=== PATIENT | male | born 1985 | race American Indian/Alaskan Native ===

== ENCOUNTER 2017-08-11 15:32 | Emergency (ER) | payer MEDICAID ==
--- NOTE | 2017-08-11 17:33 | Emergency Department Report ---
ED Laceration HPI - HPI Chief Complaint: Wound/Laceration Stated Complaint: FINGER LACERATION Time Seen by Provider: 08/11/17 17:33 Occurred When: Today Location: Upper Extremity Severity: moderate Tetanus Status: Not up to Date Laceration Symptoms: Yes Pain, No Foreign Body Sensation, No Numbness, No Weakness Other History: This is a 31-year-old -[place] male who presents with a laceration to the third left finger. Patient reports cutting wood at home with the neighbors saw and placed his finger in the wrong spot and accidentally cut it with saw. There is moderate amount of bleeding and laceration is cut into muscle tissue. He cleaned wound with alcohol and applied a gauze dressing and came over to the ER. Patient is not sure if he is up-to-date on tetanus vaccination. Reports pain is 10 out of 10 on pain scale and constant. This fall he second distal digit is well without bleeding. Admits to swelling, bleeding, and pain. Denies numbness or tingling, and feeling of foreign body sensation. ED Review of Systems ROS: Stated complaint: FINGER LACERATION Other details as noted in HPI Constitutional: denies: chills, fever Cardiovascular: denies: chest pain, palpitations Gastrointestinal: denies: abdominal pain, nausea, diarrhea Skin: lesions (laceration to second and third distal digits). denies: rash Neurological: denies: headache, weakness, numbness, paresthesias Psychiatric: denies: anxiety, depression ED Past Medical Hx - Medications Home Medications: Home Medications Medication Instructions Recorded Confirmed Last Taken Type Ibuprofen [Motrin 800 MG tab] 800 mg PO Q8HR PRN #15 tablet 08/11/17 Unknown Rx Sulfamethoxazole/Trimethoprim 1 each PO BID #14 tablet 08/11/17 Unknown Rx [Bactrim DS TAB] traMADol [Ultram 50 MG tab] 50 mg PO Q6HR PRN #15 tablet 08/11/17 Unknown Rx Laceration Physical Exam - Exam General: Vital signs noted. No distress. Alert and acting appropriately. Wound Length (cm): 1 Laceration Location: Upper Extremity (1 cm laceration to left 3rd distal phalanx into muscle, linear, surrounding tissues swelling, active bleeding) Laceration Exam: Yes Normal Distal CMS, No Foreign Body, No Exposed Tendon, Vessel, or Nerve, No Tendon Injury ED Course Vital Signs 08/11/17 15:39 Temperature 98.2 F Pulse Rate 90 Respiratory 16 Rate Blood Pressure 153/89 O2 Sat by Pulse 100 Oximetry - Laceration /Wound Repair Left Distal Finger Wound Location: upper extremity (left distal third phalanx) Wound Length (cm): 2 Wound's Depth, Shape: into muscle, irregular Wound Explored: no foreign body removed Irrigated w/ Saline (ccs): 2 Betadine Prep?: Yes Anesthesia: 1% Lidocaine (2% lidocaine without epi) Volume Anesthetic (ccs): 1 Wound Repaired With: sutures Suture Size/Type: 5:0 Number of Sutures: 6 Layer Closure?: No Deep Layer Suture Size/Type: 5:0 Sterile Dressing Applied?: Yes ED Medical Decision Making - Radiology Data Radiology results: report reviewed EXAM: XR FINGER(S) 2+V LT HISTORY: left 3rd distal digit laceration TECHNIQUE: Left 3rd finger three views PRIORS: None. FINDINGS: There is soft tissue defect tip of the 3rd finger. No fracture is identified. The joint spaces are within normal limits. No focal bony lesion identified. No radiopaque foreign body seen. IMPRESSION: Soft tissue laceration distal aspect of the 3rd digit. No fracture or radiopaque foreign body identified - Medical Decision Making This is a 31 y.o. male presents with left 3rd digit laceration from around 1 PM today. Patient examined by me. Vital stable. Patient is non-toxic appearing and stable. X-ray of left hand obtained and read by radiologist. Soft tissue laceration distal aspect of the 3rd digit. No fracture or radiopaque foreign body identified. Discharged home for outpatient treatment with bactrim for mouth cellulitis distal laceration. Discussed ER care plan with patient. Instructed to have sutures removed in 7-10 days. Patient agreed with plan. F/U with PCP. Critical care attestation.: If time is entered above; I have spent that time in minutes in the direct care of this critically ill patient, excluding procedure time. ED Disposition Clinical Impression: Laceration, Cellulitis of finger of left hand Laceration of finger of left hand Qualifiers: Encounter type: initial encounter Finger: middle finger Damage to nail status: without damage Foreign body presence: without foreign body Qualified Code(s): S61.213A - Laceration without foreign body of left middle finger without damage to nail, initial encounter Disposition: TO HOME OR SELFCARE Is pt being admited?: No Does the pt Need Aspirin: No Condition: Stable Instructions: Suture Care (ED), Laceration (ED), Cellulitis (ED) Additional Instructions: Take antibiotics as prescribed for the full course. Avoid over use of left hand and prop arm up on pillows to decrease swelling. Follow up with Primary Care Provider in 2-3 days. Have sutures removed in 7 days by primary care provider or in ER. Return to ER if red, swollen, foul discharge, or fever. Prescriptions: Ibuprofen [Motrin 800 MG tab] 800 mg PO Q8HR PRN #15 tablet PRN Reason: Pain Sulfamethoxazole/Trimethoprim [Bactrim DS TAB] 1 each PO BID #14 tablet traMADol [Ultram 50 MG tab] 50 mg PO Q6HR PRN #15 tablet PRN Reason: Pain Referrals: PRIMARY CARE, [Primary Care Provider] - 3-5 Days [facility] [place][Note 3] [Outside] - 3-5 Days [facility] [Outside] - 3-5 Days [facility] [Outside] - 3-5 Days Forms: Work/School Release Form(ED) Time of Disposition: 19:25 Print Language: GREENLANDIC
[2017-08-11] MEDS ORDERED: NORCO 5/325 PO ONE (18:05)
[2017-08-11] MEDS ORDERED: BOOSTRIX IM ONE (18:39)
--- NOTE | 2017-08-11 18:42 | XRay Report ---
FINAL REPORT EXAM: XR FINGER(S) 2+V LT HISTORY: left 3rd distal digit laceration TECHNIQUE: Left 3rd finger three views PRIORS: None. FINDINGS: There is soft tissue defect tip of the 3rd finger. No fracture is identified. The joint spaces are within normal limits. No focal bony lesion identified. No radiopaque foreign body seen. IMPRESSION: Soft tissue laceration distal aspect of the 3rd digit. No fracture or radiopaque foreign body identified
[2017-08-11 19:53] VITALS: BP 138/82
== END 2017-08-11 19:31 | disposition home or self-care (01) ==
LOC: ED 15:32
DX: S61.213A Laceration without foreign body of left middle finger without damage to nail, initial encounter (principal); L03.114 Cellulitis of left upper limb; W27.8XXA Contact with other nonpowered hand tool, initial encounter; Y93.89 Activity, other specified; Y99.8 Other external cause status; Y92.89 Other specified places as the place of occurrence of the external cause
CPT/HCPCS: 90471; 90715